=== PATIENT | male | born 1995 | race Caucasian/White ===

== ENCOUNTER 2017-09-18 15:49 | Emergency (ER) | payer SELFPAY ==
[~2017-09-18] VITALS: Ht 188 cm; Wt 81.8 kg
[2017-09-18 16:00] VITALS: TEMP 99.6
[2017-09-18] MEDS ORDERED: ADVIL200 MG PO (16:41)
[2017-09-18 16:55] LABS: COLLECTION METHOD CLEAN CATCH
[2017-09-18 17:01] LABS: MUCOUS Present /lpf; PH 5 (5-8); SQUAMOUS EPITHELIAL 0-2 /hpf; URINE APPEARANCE Clear; URINE BACTERIA None Seen /hpf; URINE BILIRUBIN Negative (NEGATIVE); URINE BLOOD Negative (NEGATIVE); URINE COLOR Yellow; URINE GLUCOSE Negative (NEGATIVE); URINE KETONE Negative (NEGATIVE); URINE LEUKOCYTE ESTERASE Negative (NEGATIVE); URINE NITRATE Negative (NEGATIVE); URINE PROTEIN(semi-quant) Negative (NEGATIVE); URINE RBC 0-2 /hpf; URINE UROBILINOGEN Negative (NEGATIVE)
[2017-09-18 17:08] LABS: MEAN CELL VOLUME 94 fl (80.0-95.0); MEAN CORPUSCULAR HGB CONC 34 g/dl (33.0-37.0); MEAN PLATELET VOLUME 10.9 fl (7.4-10.4); RED BLOOD COUNT 2.12 M/mm3 (4.20-5.60); REDCELL DISTRIBUTION WIDTH-CV 21.2 % (11.5-14.5); RETIC # 0.04 M/mm3 (0.02-0.16)
[2017-09-18 17:15] LABS: MEAN CORPUSCULAR HEMOGLOBIN 32 pg (26.0-32.0)
[2017-09-18 17:16] LABS: HEMOGLOBIN 6.7 g/dl (12.5-16.1)
[2017-09-18 17:17] LABS: PLATELET COUNT 24 K/mm3 (130-400)
[2017-09-18 17:23] LABS: BILIRUBIN,TOTAL 0.8 mg/dL (0.0-1.0); C-REACTIVE PROTEIN 5.7 mg/dL (0.0-0.9); CREATININE, serum 0.87 mg/dL (0.66-1.25); POTASSIUM 3.7 mmol/L (3.4-5.0); TOTAL PROTEIN 7.6 gm/dL (6.4-8.2)
[2017-09-18 17:35] LABS: BAND 5 % (0-10); LYMPHOCYTE 89 % (20.0-51.0); NEUTROPHILS 6 % (42.0-75.2); NUCLEATED RED BLOOD CELL 1 (0-6)
[2017-09-18 17:37] LABS: PLATELET ESTIMATE DECREASED (NORMAL)
[2017-09-18 17:38] LABS: ANISOCYTOSIS 3+; POLYCHROMASIA 1+; STOMATOCYTE 2+
[2017-09-18 17:45] LABS: ERYTHROCYTE SEDIMENTATION RATE 108 mm/hr (0-15)
[2017-09-18 18:24] VITALS: BP 128/85; PULSE 100
[2017-09-19 15:41] LABS: PATHOLOGY DIFF REVIEW DISAGREE
== END 2017-09-18 18:54 | disposition short-term general hospital (02) ==
LOC: COL.ER 15:49
PROVIDERS: Family Medicine
DX: D61.818 Other pancytopenia (principal); R16.1 Splenomegaly, not elsewhere classified; R04.0 Epistaxis
CPT/HCPCS: J2405; J7030